=== PATIENT | female | born 1955 | race African-American/Black ===

== ENCOUNTER 2018-03-06 22:59 | Emergency (ER) | payer BC ==
[2018-03-06] MEDS ORDERED: DIPHENHYDRAMINE HCL 50 MG/ML VIAL IV ONE (23:16)
[2018-03-06] MEDS ORDERED: FAMOTIDINE INJ/PF 20 MG/2 ML SDV IV ONE (23:16)
[2018-03-06] MEDS ORDERED: METHYLPREDNISOLONE INJ 125 MG/2 ML SDV IV ONE (23:16)
[2018-03-06 23:38] LABS: ABSOLUTE BASOPHILS # (AUTO) 0.1 10^3/uL (0.0-0.2); ABSOLUTE EOSINOPHILS # (AUTO) 0.2 10^3/uL (0.0-0.6); ABSOLUTE LYMPHOCYTES (AUTO) 2.2 10^3/uL (0.5-4.7); ABSOLUTE MONOCYTES (AUTO) 0.8 10^3/uL (0.1-1.4); ABSOLUTE NEUT (AUTO) 1.9 10^3/uL (1.7-8.2); BASOPHILS % (AUTO) 1.4 % (0-2); HEMATOCRIT 35.3 % (36.0-47.0); HEMOGLOBIN 12.1 g/dL (12.0-15.5); LYMPHOCYTES % (AUTO) 42.6 % (13-45); MEAN CORPUSCULAR HEMOGLOBIN 29.3 pg (27.0-33.4); MEAN CORPUSCULAR HGB CONC 34.4 g/dL (32.0-36.0); MEAN CORPUSCULAR VOLUME 85 fl (80-97); MONOCYTES % (AUTO) 15.3 % (3-13); PLATELET COUNT 264 10^3/uL (150-450); RED BLOOD COUNT 4.14 10^6/uL (3.72-5.28); SEGMENTED NEUTROPHILS % (AUTO) 37.7 % (42-78); TOTAL CELLS COUNTED % (AUTO) 100 %; WHITE BLOOD COUNT 5.1 10^3/uL (4.0-10.5)
[2018-03-06 23:51] LABS: ANION GAP 10 (5-19); BLOOD UREA NITROGEN 17 mg/dL (7-20); CALCIUM 9.7 mg/dL (8.4-10.2); CARBON DIOXIDE 30 mmol/L (22-30); CHLORIDE 104 mmol/L (98-107); GLUCOSE 94 mg/dL (75-110); POTASSIUM 3.8 mmol/L (3.6-5.0); SODIUM 143.5 mmol/L (137-145)
--- NOTE | 2018-03-07 01:06 | ER Document Report ---
ED General - General Chief Complaint: Lip Swelling Stated Complaint: TONGUE SWELLING Time Seen by Provider: 03/06/18 23:06 Notes: Patient is a 62-year-old female presents with complaints of tongue swelling. She said it might before she bit her tongue however she has history of large amount tongue swelling several years ago. She was seen at [employer] [facility] [employer] and they cannot figure out why it occurred. She says that it usually resolves with Benadryl. She took some Benadryl at 8 PM. She took 25 mg. She denies any fevers. No vomiting. No lip swelling. She says her throat did feel itchy. She does not take FELIPE inhibitors. She is on an ARB. No recent changes in her medications. No exposure to foods that typically cause swelling that she is aware of. No other complaints at this time. TRAVEL OUTSIDE OF THE [place] IN LAST 30 DAYS: No - Related Data Allergies/Adverse Reactions: No Known Allergies Allergy (Unverified 02/05/15 20:55) Past Medical History - Social History Smoking Status: Unknown if Ever Smoked Frequency of alcohol use: None Drug Abuse: None Family History: Reviewed & Not Pertinent - Past Medical History Cardiac Medical History: Reports: Hx Atrial Fibrillation, Hx Hypertension Pulmonary Medical History: Reports: Hx Sleep Apnea Past Surgical History: Reports: Hx Section, Hx Cholecystectomy Review of Systems - Review of Systems Notes: My Normal Review Basic REVIEW OF SYSTEMS: CONSTITUTIONAL : Denies fever, chills, or sweats. Denies recent illness. EENT: Tongue swelling CARDIOVASCULAR: Denies chest pain. RESPIRATORY: Denies cough, cold, or chest congestion. Denies shortness of breath, difficulty breathing, or wheezing. GASTROINTESTINAL: Denies abdominal pain. Denies nausea, vomiting, or diarrhea. Denies constipation. Last BM: MUSCULOSKELETAL: Denies neck or back pain or joint pain or swelling. SKIN: Denies rash or skin lesions. NEUROLOGICAL: Denies altered mental status or loss of consciousness. Denies headache. Denies weakness or paralysis or loss of use of either side. Denies problems with gait or speech. Denies sensory or motor loss. ALL OTHER SYSTEMS REVIEWED AND NEGATIVE. Physical Exam - Vital signs Vitals: Resp Pulse Ox 22 H 96 03/06/18 23:19 03/06/18 23:19 - Notes Notes: General Appearance: Well nourished, alert, cooperative, no acute distress, no obvious discomfort. Vitals: reviewed, See vital signs table. Head: no swelling or tenderness to the head Eyes: PERRL, EOMI, Conjuctiva clear Mouth: Patient has very minimal swelling in the tip of her tongue. The remainder of the tongue does not have swelling and her pharynx does not have swelling. Throat: No tonsillar inflammation, No airway obstruction, No lymphadenopathy Neck: Supple, no neck tenderness, No thyromegaly Lungs: No wheezing, No rales, No rhonci, No accessory muscle use, good air exchange bilaterally. Heart: Normal rate, Regular rythm, No murmur, no rub Skin: warm, dry, appropriate color, no rash Neuro: speech clear, oriented x 3, normal affect, responds appropriately to questions. Course - Re-evaluation Re-evalutation: 03/07/18 02:09 Patient's tongue continues to look very well. Her swelling is completely resolved and she says she feels well. Has been resolved for approximately over just over an hour. At this time for the patient is to be discharged home. She never had a large amount of swelling. She never had any lip swelling. She never had any pharyngeal swelling. She never had any stridor. She did not have any wheezing. She looks very well and feels safe to go home and never showed any signs of airway compromise. Patient to follow-up closed with a primary care doctor and to return to ER immediately if she has recurrence of tongue swelling, any lip swelling, any difficulty breathing, or she feels unwell. Patient agrees with plan will be discharged home. Dictation of this chart was performed using voice recognition software; therefore, there may be some unintended grammatical errors. - Vital Signs Vital signs: Temp Pulse Resp BP Pulse Ox 18 132/88 H 95 03/07/18 02:01 03/07/18 02:01 03/07/18 02:01 - Laboratory Result Diagrams: 03/06/18 23:28 03/06/18 23:28 Laboratory results interpreted by me: 03/06/18 23:28 Hct 35.3 L RDW 15.0 H Seg Neutrophils % 37.7 L Monocytes % 15.3 H Discharge - Discharge Clinical Impression: Tongue swelling Condition: Good Disposition: HOME, SELF-CARE Additional Instructions: Please follow up closely with your primary care doctor in the next 1-2 days. Please return to the ER immediately if you develop recurrent tongue swelling, throat swelling, difficulty breathing, difficulty swallowing, or if you feel unwell. Forms: Return to Work
[2018-03-07 02:11] VITALS: BP 132/88
== END 2018-03-07 02:21 | disposition home or self-care (01) ==
LOC: ER 22:59
DX: R22.0 Localized swelling, mass and lump, head (principal); I48.91 Unspecified atrial fibrillation; I10 Essential (primary) hypertension; Z90.49 Acquired absence of other specified parts of digestive tract
CPT/HCPCS: 99283; 96374; 96375; 36415; 85025; 80048; J1200; J2930; S0028

== ENCOUNTER 2018-04-14 19:07 | Emergency (ER) | payer BC ==
[2018-04-14 19:28] VITALS: BP 159/91
[2018-04-14] MEDS ORDERED: METOCLOPRAMIDE HCL 10 MG TABLET PO ONE (19:45)
[2018-04-14] MEDS ORDERED: DIPHENHYDRAMINE HCL 25 MG CAPSULE PO ONE (19:45)
[2018-04-14] MEDS ORDERED: IBUPROFEN 600 MG TABLET PO ONE (19:46)
--- NOTE | 2018-04-14 19:47 | ER Document Report ---
ED General - General Chief Complaint: Blood Pressure Problem Stated Complaint: HEADACHE Time Seen by Provider: 04/14/18 19:31 Mode of Arrival: Ambulatory Information source: Patient, Relative Notes: 62-year-old female with hypertension, atrial fibrillation presents with concern for elevated blood pressure readings over the last 2 days and an associated headache. Patient states that her blood pressure medication has recently been changed from Benicar to hydrochlorothiazide and verapamil. She states the Benicar was stopped because they believed it was causing lip swelling. Patient states that she has been on these new medications for 2 days but she has not been taking them as prescribed. She is supposed to take both medications daily and she has only been taking her HCTZ because the verapamil as causing palpitations. Her doctor is aware of this and advised her to continue the medication. Patient's headache is located in her forehead, described as a mild ache without associated blurred vision, photophobia, nausea. TRAVEL OUTSIDE OF THE [place] IN LAST 30 DAYS: No - HPI Onset: Other Onset/Duration: Gradual Quality of pain: Achy Severity: Mild Associated symptoms: Headache Exacerbated by: Denies Relieved by: Denies Similar symptoms previously: Yes Recently seen / treated by doctor: Yes - Related Data Allergies/Adverse Reactions: Penicillins Allergy (Verified 04/14/18 19:32) Past Medical History - General Information source: Patient, Relative, [facility] Records - Social History Smoking Status: Never Smoker Frequency of alcohol use: None Drug Abuse: None Lives with: Alone Family History: Reviewed & Not Pertinent Patient has suicidal ideation: No Patient has homicidal ideation: No - Past Medical History Cardiac Medical History: Reports: Hx Atrial Fibrillation, Hx Hypertension Pulmonary Medical History: Reports: Hx Sleep Apnea Renal/ Medical History: Reports: Hx Kidney Stones. Denies: Hx Peritoneal Dialysis Past Surgical History: Reports: Hx Section, Hx Cholecystectomy, Hx Hysterectomy, Hx Tonsillectomy Review of Systems - Review of Systems Notes: REVIEW OF SYSTEMS: CONSTITUTIONAL : Denies fever, chills, or sweats. Denies recent illness. Denies weight loss, recent hospitalizations. EENT: Denies visual changes, eye pain. Denies nasal or sinus congestion or discharge. Denies sore throat, oral lesions, difficulty swallowing. CARDIOVASCULAR: Denies chest pain. Denies palpitations. Denies lower extremity edema. RESPIRATORY: Denies cough, cold, or chest congestion. Denies shortness of breath, wheezing. GASTROINTESTINAL: Denies abdominal pain or distention. Denies nausea, vomiting , or diarrhea. Denies blood in vomitus, stools, or per rectum. Denies black, tarry stools. Denies constipation. GENITOURINARY: Denies difficulty urinating, painful urination, frequency, blood in urine, or vaginal discharge. MUSCULOSKELETAL: Denies back or neck pain or stiffness. Denies joint pain or swelling. SKIN: Denies rash, lesions or sores. HEMATOLOGIC : Denies easy bruising or bleeding. LYMPHATIC: Denies swollen glands. NEUROLOGICAL: Denies confusion or altered mental status. Denies passing out or loss of consciousness. Denies dizziness or lightheadedness. Denies weakness or paralysis. Denies problems difficulty with ambulation, slurred speech. Denies sensory loss, numbness, or tingling. Denies seizures. PSYCHIATRIC: Denies anxiety or stress. Denies depression, suicidal ideation, or homicidal ideation. Denies visual or auditory hallucinations. Physical Exam - Vital signs Vitals: Temp Pulse Resp BP Pulse Ox 98.5 F 76 17 159/91 H 94 04/14/18 19:26 04/14/18 19:26 04/14/18 19:26 04/14/18 19:26 04/14/18 19:26 - Notes Notes: PHYSICAL EXAMINATION: GENERAL: Well-appearing, well-nourished and in no acute distress. HEAD: Atraumatic, normocephalic. EYES: Pupils equal round and reactive to light, extraocular movements intact, conjunctiva are normal. ENT: Nares patent, oropharynx clear without exudates. Moist mucous membranes. NECK: Normal range of motion, supple without lymphadenopathy LUNGS: Breath sounds clear to auscultation bilaterally and equal. No wheezes rales or rhonchi. HEART: Regular rate and rhythm without murmurs ABDOMEN: Soft, nontender, nondistended abdomen. No guarding, no rebound. No masses appreciated. Female : deferred Musculoskeletal: Normal range of motion, no pitting or edema. No cyanosis. NEUROLOGICAL: Cranial nerves grossly intact. Normal speech, normal gait. Normal sensory, motor exams PSYCH: Normal mood, normal affect. SKIN: Warm, Dry, normal turgor, no rashes or lesions noted. Course - Re-evaluation Re-evalutation: 04/14/18 19:51 62-year-old female presents with concern of elevated blood pressure over the last few days. She did recently have a change in her medication from Benicar to verapamil and Maxzide. Patient admits to not taking her medications as prescribed. She states she does not like the verapamil because it causes her heart to flutter. She has made her physician aware of this and he advised to please take the medications together daily. Patient is willing to try taking the medications as prescribed. We did discuss coming into the emergency room and having blood work but the patient declines at this time. She has a normal physical exam. Patient's headache will be treated with Reglan, Benadryl and Motrin. Patient provided the opportunity to ask questions, and express concerns. Discharge instructions discussed. Patient is agreeable with discharge home. Return indications explained and discussed with the patient who displays understanding. Patient encouraged to return to the emergency department immediately with any concerns. - Vital Signs Vital signs: Temp Pulse Resp BP Pulse Ox 98.5 F 76 17 159/91 H 94 04/14/18 19:26 04/14/18 19:26 04/14/18 19:26 04/14/18 19:26 04/14/18 19:26 Discharge - Discharge Clinical Impression: Elevated blood pressure reading, Noncompliance with medication regimen Condition: Good Disposition: HOME, SELF-CARE Instructions: Headache ([facility]), High Blood Pressure ([facility]) Additional Instructions: Please take your blood pressure medications as your doctor prescribed. Please let him know if you are experiencing any adverse reactions to the medication. Forms: Elevated Blood Pressure, Return to Work
== END 2018-04-14 19:50 | disposition home or self-care (01) ==
LOC: ER 19:07
DX: I10 Essential (primary) hypertension (principal); Z91.14 Patient's other noncompliance with medication regimen; R51 Headache; H53.8 Other visual disturbances; H53.149 Visual discomfort, unspecified; R11.0 Nausea; I48.91 Unspecified atrial fibrillation; Z79.899 Other long term (current) drug therapy
CPT/HCPCS: 99283

== ENCOUNTER 2019-11-18 21:51 | Emergency (ER) | payer BC ==
[2019-11-18 23:12] VITALS: BP 147/76
== END 2019-11-19 03:55 | disposition left against medical advice (07) ==
LOC: ER 21:51
DX: Z53.21 Procedure and treatment not carried out due to patient leaving prior to being seen by health care provider (principal)

== ENCOUNTER → 2020-04-21 | Outpatient (CLI) | payer BC ==
--- NOTE | 2020-04-21 13:42 | WOMENS IMAGING REPORT ---
EXAM DESCRIPTION: BILAT SCREENING MAMMO W/CAD IMAGES COMPLETED DATE/TIME: 04/21/2020 1:23 pm REASON FOR STUDY: Z12.31 ENCNTR SCREEN MAMMOGRAM FOR MALIGNANT NEOPLASM OF BREAST M81.0 AGE-RELATED OSTEOPOROSIS W/O CURRENT PATHOLOGICAL FRAC Z12.31 ENCNTR SCREEN MAMMOGRAM FOR MALIGNANT NEOPLASM OF MIHAELA COMPARISON: None. EXAM PARAMETERS: Standard craniocaudal and mediolateral oblique views of each breast recorded using digital acquisition. Read with the assistance of CAD. .[facility] - [place] [employer] Machine Hand Version 9.2 LIMITATIONS: None. FINDINGS: No suspicious masses, suspicious calcifications or architectural distortion. No areas of c oncern. IMPRESSION: NEGATIVE MAMMOGRAM. BIRADS 1 BREAST DENSITY: b. There are scattered areas of fibroglandular density. BIRAD: ASSESSMENT: 1 NEGATIVE RECOMMENDATION: ROUTINE SCREENING COMMENT: The patient has been notified of the results by letter per MQSA requirements. Additional no tification policies are in place for contacting patient with suspicious or incomplete findings. Quality ID #[id number]: The [employer] recommends an annual screening mammogram for women aged 40 years or over. This facility utilizes a reminder system to ensure that all patients receive reminder letters, and/or direct phone calls for appointments. This includes reminders for routine scr eening mammograms, diagnostic mammograms, or other Breast Imaging Interventions when appropriate. Th is patient will be placed in the appropriate reminder system. TECHNICAL DOCUMENTATION: FINDING NUMBER: (1) ASSESSMENT: (1) JOB ID: [id number] 2010 [employer]- All Rights Reserved Reading location - IP/workstation name: [email or web address]
--- NOTE | 2020-04-21 13:53 | WOMENS IMAGING REPORT ---
EXAM DESCRIPTION: BONE DENSITY HIP/SPINE IMAGES COMPLETED DATE/TIME: 04/21/2020 1:23 pm REASON FOR STUDY: M81.0 AGE-RELATED OSTEOPOROSIS W/O CURRENT PATHOLOGICAL FRACTURE M81.0 AGE-RELATE D OSTEOPOROSIS W/O CURRENT PATHOLOGICAL FRAC Z12.31 ENCNTR SCREEN MAMMOGRAM FOR MALIGNANT NEOPLASM O F MIHAELA COMPARISON: None. TECHNIQUE: Dual-Energy X-ray Absorptiometry (DEXA) of the AP Spine and Hip. LIMITATIONS: None. FINDINGS: LUMBAR SPINE: The bone mineral density (BMD) measured from L1-L4 in the AP projection correlates with a T-score of 3.3, which is normal as defined by the World Health Organization. HIP: The bone mineral density (BMD) measured in the left hip correlates with a T-score of 1.3, which is no rmal as defined by the World Health Organization. IMPRESSION: 1. LUMBAR SPINE: NORMAL. 2. HIP: NORMAL. COMMENT: The World Health Organization defines low BMD as follows: T-score: Normal: Greater than -1.0 Osteopenia: Between -1.0 and -2.5 Osteoporosis: Less than -2.5 without fractures Established osteoporosis: Less than -2.5 with fractures In general, you may wish to consider: Diagnosis Treatment Follow-up DEXA Normal BMD Prevention 2-3 years Osteopenia Prevention/Therapy 1-2 years Osteoporosis Therapy Yearly TECHNICAL DOCUMENTATION: JOB ID: [id number] 2010 [employer]- All Rights Reserved Reading location - IP/workstation name: [email or web address]
== END ==
LOC: WI 12:40
PROVIDERS: ATTEND Physician Assistant
DX: Z12.31 Encounter for screening mammogram for malignant neoplasm of breast (principal); M81.0 Age-related osteoporosis without current pathological fracture
CPT/HCPCS: 77067; 77080